=== PATIENT | female | born 1945 | race Caucasian/White ===

== ENCOUNTER 2019-12-24 13:28 | Emergency (ER) | payer MEDICARE ==
[~2019-12-24] VITALS: Ht 162.6 cm; Wt 90.0 kg
[2019-12-24 13:35] VITALS: BP 142/85
--- NOTE | 2019-12-24 13:59 | NUR ---
[id number] need to call when pt is done with d/c instruction.
[2019-12-24] MEDS ORDERED: oxymetazoline 15 ML nasal spray NS ONE (14:00)
== END 2019-12-24 15:35 | disposition home or self-care (01) ==
LOC: ER 13:29
DX: R04.0 Epistaxis (principal); R06.7 Sneezing; R42 Dizziness and giddiness
CPT/HCPCS: 99282; 99283; 99284